=== PATIENT | female | born 1960 | race Caucasian/White ===

== ENCOUNTER 2017-05-01 23:47 | Emergency (ER) | payer OTHER ==
[~2017-05-01] VITALS: Ht 167.6 cm; Wt 81.7 kg
[2017-05-02 00:28] LABS: BASOPHILS ABSOLUTE AUTO 0.08 K/mm3 (0.00-0.23); BASOPHILS PERCENT AUTO 1 % (0-2); EOSINOPHILS PERCENT AUTO 1 % (0-6); Hematocrit 38.1 % (33.0-51.0); IMMATURE GRAN ABSOLUTE AUTO 0.03 K/mm3 (0.00-0.10); IMMATURE GRAN PERCENT AUTO 0 % (0-1); LYMPHOCYTES ABSOLUTE AUTO 3.19 K/mm3 (0.84-5.20); LYMPHOCYTES PERCENT AUTO 28 % (21-46); MONOCYTES ABSOLUTE AUTO 0.61 K/mm3 (0.16-1.47); MONOCYTES PERCENT AUTO 5 % (4-13); Mean Corpuscular HGB 28.2 pg (26.0-34.0); Mean Corpuscular HGB Conc 34.1 g/dL (31.5-36.5); Mean Corpuscular Volume 83 fL (80-100); Mean Platelet Volume 10.6 fL (9.1-12.4); NEUTROPHILS ABSOLUTE AUTO 7.58 K/mm3 (1.96-9.15); NEUTROPHILS PERCENT AUTO 65 % (41-73); Platelet Count 317 K/mm3 (150-400); RDW Standard Deviation 41.9 fL (35.1-46.3); Red Blood Cell Count 4.61 M/mm3 (3.80-5.20); White Blood Cell Count 11.59 K/mm3 (4.00-11.30)
[2017-05-02 00:44] LABS: Source, Urine Voided
[2017-05-02 00:46] LABS: Bilirubin, Urine Neg (Neg); Blood, Urine 1+ (Neg); Glucose Qualitative, Urine Neg (Neg); Ketones, Urine 4+ (Neg); Leukocyte Esterase, Urine 2+ (Neg); Nitrite, Urine Neg (Neg); Protein, Urine 2+ (Neg); Specific Gravity, Urine 1.025 (1.003-1.022); Urobilinogen, Urine NORM (Normal)
[2017-05-02 00:49] LABS: Appearance, Urine Hazy (Clear); Color, Urine Amber (P-Yellow)
[2017-05-02 00:49] LABS: Alanine Aminotransfer (ALT/SGP 36 U/L (12-78); Albumin, Blood 4.3 g/dL (3.4-5.0); Albumin/Globulin Ratio 1.2 (0.8-1.8); Alk Phos 74 U/L (50-136); Anion Gap 16 mmol/L (6-16); Aspartate Aminotrans (AST/SGOT 49 U/L (12-37); Bilirubin, Total 0.6 mg/dL (0.1-1.0); Blood Urea Nitrogen 7 mg/dL (8-24); Bun/Creatinine Ratio 10.6 (12.0-20.0); CO2, Blood 17 mmol/L (21-32); Calcium, Blood 9.3 mg/dL (8.5-10.1); Chloride, Blood 107 mmol/L (98-108); Creatinine, Blood 0.66 mg/dL (0.40-1.00); Globulin, Blood 3.7 g/dL (2.2-4.0); Glomerular Filtration Rate >60 (60-); Glucose, Blood 156 mg/dL (70-99); Potassium, Blood 3.4 mmol/L (3.5-5.5); Sodium, Blood 140 mmol/L (136-145); Troponin I <0.015 ng/mL (0.000-0.040)
[2017-05-02 00:53] LABS: Amorphous Light (0-Heavy); Bacteria Mod /hpf; Mucus Mod (0-Heavy); Red Blood Cells, Urine 0-2 /hpf (0-2); Squamous Epithelial Cells Few /hpf (Few)
[2017-05-02 00:58] LABS: U Amphetamine Screen Not Detected; U Barbituate Screen Not Detected; U Benzodiazapine Screen Not Detected; U Buprenorphine Screen Not Detected; U Cannabinoids Screen DETECTED; U Cocaine Screen Not Detected; U Methadone Screen Not Detected; U Methamphetamine Screen Not Detected; U Opiates Screen Not Detected; U Oxycodone Screen Not Detected; U Phencyclidine Screen Not Detected; U Propoxyphene Screen Not Detected
[2017-05-02] MEDS ORDERED: CEPH500 PO (01:46)
[2017-05-02] MEDS ORDERED: PROM25 PO (01:46)
== END 2017-05-02 02:45 | disposition home or self-care (01) ==
LOC: ER 23:47
PROVIDERS: Physician Assistant
DX: N39.0 Urinary tract infection, site not specified (principal)
CPT/HCPCS: 36415; 80053; 81001; 81025; 83690; 84484; 85025; 87086; 93005; 93010; 96361; 96374; 96375; 99283; J1200; J1630; J2405; J7030

== ENCOUNTER 2017-05-26 13:55 | Emergency (ER) | payer OTHER ==
[~2017-05-26] VITALS: Ht 172.7 cm; Wt 81.7 kg
[~2017-05-26 13:55] MED LIST: CEPH500 PO; PROM25 PO
[2017-05-26] MEDS ORDERED: TRIA15CR3 TOP (16:06)
[2017-05-26] MEDS ORDERED: Prednisone20 MG PO (16:06)
== END 2017-05-26 16:20 | disposition home or self-care (01) ==
LOC: ER 13:55
DX: L23.7 Allergic contact dermatitis due to plants, except food (principal)
CPT/HCPCS: 99283